=== PATIENT | male | born 1965 | race Caucasian/White ===

== ENCOUNTER 2018-12-07 23:35 | Emergency (ER) | payer OTHER, SELFPAY ==
[2018-12-07 23:36] VITALS: BP 172/80; PULSE 99; RESP 16; TEMP 36.7; O2SAT 97; BMI 33.0
--- NOTE | 2018-12-07 23:41 | RAD_ITS ---
STUDY: X-RAY CHEST REASON FOR EXAM: Male, 53 years old. Chest pain TECHNIQUE: Single AP portable view of the chest. COMPARISON: None. FINDINGS: There is ill-defined rounded groundglass opacity in the right upper lobe measures 3 cm may represent early pneumonia. There is no demonstrated pleural abnormality. Normal size heart. Normal mediastinum and cliff. Normal visualized pulmonary arteries. Normal visualized aortic arch and descending thoracic aorta. Normal visualized thoracic spine. Normal visualized ribs, clavicles, and shoulders. There is no demonstrated abnormality of the visualized soft tissue structures of the upper abdomen. RAD/Chest PA and Lateral IMPRESSION: There is ill-defined rounded groundglass opacity in the right upper lobe measures 3 cm may represent early pneumonia. Electronically Signed: Cami Gonsalves MD at 1:10 EST Tel , Service support ,
--- NOTE | 2018-12-07 23:41 | EKG12_ITS ---
Test Reason : CP Blood Pressure : / mmHG Vent. Rate : 094 BPM Atrial Rate : 094 BPM P-R Int : 156 ms QRS Dur : 092 ms QT Int : 358 ms P-R-T Axes : 029 021 065 degrees QTc Int : 447 ms Normal sinus rhythm Normal ECG Confirmed by NICHOLAS IZAGUIRRE MD ([id number]), editorial project manager RALEIGH TURNER ([id number]) on 12/11/2018 1:34:52 PM Referred By: LUCIA Confirmed By:NIHCOLAS IZAGUIRRE MD
--- NOTE | 2018-12-07 23:52 | ED.VISSUMM ---
- ER Visit Summary Date of Service: 12/07/18 Chief Complaint: Right-sided chest pain History of Present Illness: The patient is a 53 M history of reflux and hypertension. No prior cardiac history. Patient states he had extensive workup in the end of 2013 because he donated a kidney to a family member had a negative stress test at that time. He denies any recent exertional chest pain. He works in [employer] says he is fallen several times on the ice of the last couple weeks. Tonight he was at home and he woke up from sleep with right-sided chest pain at approximately 11:00 p.m. Said the pains been constant but it is less than now. Is worse with movement and deep breathing. He denies any history of hemoptysis. He denies any history of DVT or PE. No recent travel, surgery or immobilization. No calf pain or swelling. Denies fever or cough. No history of a collapsed lung. He does smoke. Family history of cardiac disease or coagulopathy. No recent exertional dyspnea or exertional chest pain. Physical Examination: Well-appearing middle-age male. Vital signs are stable. He is afebrile. His pulse ox 97% on room air no hypoxia. No distress. HEENT exam unremarkable. Neck nontender no lymphadenopathy. Lungs clear to auscultation bilaterally. Equal and symmetrical. No rales, rhonchi or wheezing. Chest wall is nontender. No ecchymosis or bruising. No bony deformities. No subcu air. Heart is regular rate and rhythm with no murmur. Abdomen is soft and nontender normal bowel sounds without peritoneal signs. Extremities moves all 4. Equal symmetrical radial pulses. Normal senior oracle developer strength bilaterally. Dorsi plantar flexion intact. Calves are nontender without edema nor cords. Back is nontender. Neurologically he is awake and alert with no focal motor deficits. Test Results: EKG shows a normal sinus rhythm rate of 94 with absolutely no acute abnormality. No ischemia. No dysrhythmia. And unchanged from her prior EKG from December 2014. Chest x-ray two-view shows a right upper lobe density on the lateral asked that was not seen on prior chest x-rays. A CAT scan will be obtained to further evaluate this. Clinically does not have PE but it was sudden onset Sunday on a CTA of his chest with contrast. CBC shows a chronic anemia hemoglobin of 12. Electrolytes unremarkable. Normal creatinine. Troponin normal. A repeat EKG was also done it was a sinus rhythm of 88 with no acute abnormality from the first EKG done tonight and a prior 1. Do you have the right upper lobe density a CTA was obtained. There is no PE or dissection. He does have what appears to be a groundglass appearance right upper lobe pneumonia per the radiologist and reviewed by me. Emergency Department Course and Treatment: Patient will undergo cardiac workup my clinical suspicion for this being cardiac is low. He has no risk factors for PE. No recent travel, surgery or immobilization. No hemoptysis or leg pain or swelling. Patient doing well on repeat exams. He is resting comfortably at 1:20 AM. I went over the chest x-ray with him and is comfortable with the CAT scan being obtained. Patient doing well at 02 45 AM on repeat exam. Treatment Plan: Treated with Motrin and Tylenol for pain. Plenty of fluids and rest. Zithromax Z-AGNES first dose given in the ER. Follow-up with his PCP Disposition: Discharge Impression: Acute right-sided chest pain secondary to right upper lobe pneumonia This note was generated with [employer] dictation software. It may contain incorrect words, spelling, and punctuation that were not noted in review of the chart prior to signing ED Disposition - Plan for ED Patient: Referrals: Gerald Oconnor DO [Primary Care Provider] -
--- NOTE | 2018-12-07 23:55 | ED.DCSUM_ITS ---
- ER Visit Summary Date of Service: 12/07/18 Chief Complaint: Right-sided chest pain History of Present Illness: The patient is a 53 M history of reflux and hypertension. No prior cardiac history. Patient states he had extensive workup in the end of 2013 because he donated a kidney to a family member had a negative stress test at that time. He denies any recent exertional chest pain. 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 Tonight he was at home and he woke up from sleep with right-sided chest pain at approximately 11:00 p.m. Said the pains been constant but it is less than now. Is worse with movement and deep breathing. He denies any history of hemoptysis. He denies any history of DVT or PE. No recent travel, surgery or immobilization. No calf pain or swelling. Denies fever or cough. No history of a collapsed lung. He does smoke. Family history of cardiac disease or coagulopathy. No recent exertional dyspnea or exertional chest pain. Physical Examination: Well-appearing middle-age male. Vital signs are stable. He is afebrile. His pulse ox 97% on room air no hypoxia. No distress. HEENT exam unremarkable. Neck nontender no lymphadenopathy. Lungs clear to auscultation bilaterally. Equal and symmetrical. No rales, rhonchi or wheezing. Chest wall is nontender. No ecchymosis or bruising. No bony deformities. No subcu air. Heart is regular rate and rhythm with no murmur. Abdomen is soft and nontender normal bowel sounds without peritoneal signs. Extremities moves all 4. Equal symmetrical radial pulses. Normal brass buffer strength bilaterally. Dorsi plantar flexion intact. Calves are nontender without edema nor cords. Back is nontender. Neurologically he is awake and alert with no focal motor deficits. Test Results: EKG shows a normal sinus rhythm rate of 94 with absolutely no acute abnormality. No ischemia. No dysrhythmia. And unchanged from her prior EKG from December 2014. Chest x-ray two-view shows a right upper lobe density on the lateral asked that was not seen on prior chest x-rays. A CAT scan will be obtained to further evaluate this. Clinically does not have PE but it was sudden onset Sunday on a CTA of his chest with contrast. CBC shows a chronic anemia hemoglobin of 12. Electrolytes unremarkable. Normal creatinine. Troponin normal. A repeat EKG was also done it was a sinus rhythm of 88 with no acute abnormality from the first EKG done tonight and a prior 1. Do you have the right upper lobe density a CTA was obtained. There is no PE or dissection. He does have what appears to be a groundglass appearance right upper lobe pneumonia per the radiologist and reviewed by me. Emergency Department Course and Treatment: Patient will undergo cardiac workup my clinical suspicion for this being cardiac is low. He has no risk factors for PE. No recent travel, surgery or immobilization. No hemoptysis or leg pain or swelling. Patient doing well on repeat exams. He is resting comfortably at 1:20 AM. I went over the chest x-ray with him and is comfortable with the CAT scan being obtained. Patient doing well at 02 45 AM on repeat exam. Treatment Plan: Treated with Motrin and Tylenol for pain. Plenty of fluids and rest. Zithromax Z-AGNES first dose given in the ER. Follow-up with his PCP Disposition: Discharge Impression: Acute right-sided chest pain secondary to right upper lobe pneumonia This note was generated with [employer] dictation software. It may contain incorrect words, spelling, and punctuation that were not noted in review of the chart prior to signing ED Disposition - Plan for ED Patient: Referrals: Gerald Oconnor DO [Primary Care Provider] -
[2018-12-07 23:58] LABS: Absolute Lymphocyte Count 1.79 X10^3/ul (0.83-4.51); Absolute Neutrophil Count 7.1 X10^3/uL (2.0-7.7); Basophil# 0.01 X10^3/uL; Basophil% 0.1 % (0-1); Eosinophil# 0.04 X10^3/uL; Eosinophils% 0.4 % (0-5); Hematocrit 34.8 % (40-54); Hemoglobin 12.1 g/dl (13.0-16.5); Lymphocyte # 1.79 X10^3/ul (4.0); Lymphocyte % 17.9 % (19-41); Mean Corp Hgb Conc 34.8 g/gl (32-36); Mean Corpuscular Hgb 33.8 pg (27.0-32.0); Mean Corpuscular Volume 97.2 fL (80-94); Mean Platelet Vol. 8.2 fl (6.2-12.0); Monocyte# 1.05 X10^3/uL; Monocyte% 10.5 % (0-10); Neutrophil % 70.9 % (47-70); Platelet Count 210 K/mm3 (150-450); RBC Distribution Width SD 40.6 fl (35.1-43.9); Red Blood Count 3.58 M/mm3 (4.6-6.2)
[2018-12-08 00:01] LABS: POSITIVE COUNT NO; POSITIVE DIFFERENTIAL NO; POSITIVE MORPHOLOGY NO
[2018-12-08] MEDS: Aspirin 81 MG TAB.CHEW 324 MG PO (00:04)
[2018-12-08 00:22] LABS: Anion Gap 11 (5-15); BUN 17 mg/dL (7-18); BUN/Creat Ratio 16.7 RATIO (10-20); Calcium,Total 9.4 mg/dL (8.5-10.1); Chloride 105 mmol/L (98-107); Creatinine, Serum 1.02 mg/dL (0.70-1.30); EST Glomerular Filtration Rate 81 mL/min (>60); Est Glom Filt Rate - Afr Amer 99 mL/min (>60); Estimated Creatinine Clearance 95.74 ml/min; Glucose 120 mg/dL (74-106); Potassium 3.6 mmol/L (3.5-5.1); Sodium Level 140 mmol/L (136-145)
--- NOTE | 2018-12-08 00:45 | EKG12_ITS ---
Test Reason : REPEAT CP Blood Pressure : / mmHG Vent. Rate : 088 BPM Atrial Rate : 088 BPM P-R Int : 176 ms QRS Dur : 092 ms QT Int : 354 ms P-R-T Axes : 038 019 068 degrees QTc Int : 428 ms Normal sinus rhythm Cannot rule out Inferior infarct , age undetermined Abnormal ECG Confirmed by DMITRIY DOMINGO, NICHOLAS ([id number]), editor publications RALEIGH TURNER ([id number]) on 12/11/2018 1:34:36 PM Referred By: LUCIA Confirmed By:NICHOLAS IZAGUIRRE MD
[2018-12-08 00:51] VITALS: PULSE 90; RESP 16; O2SAT 92
[2018-12-08 01:10] VITALS: BP 146/76; PULSE 91; RESP 18; O2SAT 94
--- NOTE | 2018-12-08 01:15 | CT_ITS ---
STUDY: CTA CHEST REASON FOR EXAM: Male, 53 years old. Right-sided chest pain RADIATION DOSAGE (If Supplied By Facility): CTDIvol = ( 16.47 ) mGy, DLP = ( 769.39 ) mGycm TECHNIQUE: The examination was performed with the intravenous administration of 100ml ml of Isovue 370 contrast material. Post-processing of the angiographic images was performed, with multiplanar reformation and 3D reconstruction. Individualized dose optimization techniques were used for this CT. COMPARISON: None. FINDINGS: TRACHEA, THYROID, ESOPHAGUS: No tracheomalacia,stricture or wall thickening. Thyroid and esophagus are normal CARDIOVASCULAR SYSTEM: The thoracic aorta is normal with no focal aneurysm or dissection. There are no abnormal calcifications/metallic densities at the aortic root. The pulmonary trunk and the left and right pulmonary arteries and their lobar and segmental branches all fail to show any abnormal and persistent filling defects to indicate the presence of pulmonary embolism. The heart is normal in size with no demonstration of any right ventricular strain. No developmental vascular anomalies are seen. ABIEL AND LYMPH NODES: No hilar masses and no mediastinal, hilar, axillary or supraclavicular adenopathy LUNGS, LOW-ATTENUATION: No traction bronchiectasis, honeycombing,emphysema, lung cysts or cavitations LUNGS, HIGH ATTENUATION: There is a 5.5 x 4.0 cm tuft of groundglass opacity in the peripheral aspect of the right upper lobe. A focus of pneumonia is suspected. LUNGS, MOSAIC/CRAZY PAVING: Not evident PLEURA AND CHEST WALL: No plural effusions, pneumothoraces,rib fractures or any osteolytic/osteoblastic changes . The soft tissue chest wall including the breasts are normal UPPER ABDOMEN: Unremarkable . CT/CTA Chest W/WO Contrast IMPRESSION: Normal CTA chest examination, without a demonstrated pulmonary embolism or arterial dissection.. Focal area of a groundglass opacity in the periphery of the right upper lobe. Pneumonia is suspected Electronically Signed: Julian Gibson MD at 2:27 EST Tel , Service support ,
--- NOTE | 2018-12-08 01:50 | ED.RN ---
PT REMOVED FROM RESTRAINTS AT 0145. PT RESTING IN BED WITH EYES CLOSED. SITTER AT BEDSIDE.
[2018-12-08 02:43] VITALS: BP 152/74; PULSE 89; RESP 19; O2SAT 94
--- NOTE | 2018-12-08 02:46 | ED.DEP ---
ED Disposition - Plan for ED Patient: Disposition: Home or Assisted Living Instructions: ED Pneumonia Adult, Pleurisy Prescriptions: Azithromycin [Zithromax] 250 mg PO DAILY #4 tab Referrals: Gerald Oconnor DO [Primary Care Provider] - 1 Week if not improving Additional Instructions: What appears on your chest x-ray and CAT scan your chest seems to be a right upper lobe pneumonia. This could be given you the pain in your right chest due to inflammation of the lining around the lung. He will be started on the antibiotic Zithromax. Annual need to take her second dose on Sunday. Limited Motrin for pain. Follow-up with your doctor to ensure you are improving. Return if worse.
[2018-12-08] MEDS: Azithromycin 250 MG Tablet 500 MG PO (02:57)
[2018-12-08 03:02] VITALS: BP 146/84; PULSE 89; RESP 16; O2SAT 97
== END 2018-12-08 03:03 | disposition home or self-care (01) ==
PROVIDERS: Emergency Provider Emergency Medicine; Family Provider Student in an Organized Health Care Education/Training Program; PCP Student in an Organized Health Care Education/Training Program
DX: J18.9 Pneumonia, unspecified organism (principal); R07.9 Chest pain, unspecified; Z72.0 Tobacco use
CPT/HCPCS: 71046; 71275; 80048; 84484; 85025; 93005; 99285; Q9967

== ENCOUNTER 2018-12-10 08:51 | Inpatient (IN) | payer OTHER, SELFPAY ==
[2018-12-10] VITALS (9 sets, daily range): BP systolic 119–157; BP diastolic 66–101; PULSE 90–105; RESP 11–24; TEMP 36.6–39.4; O2SAT 93–99; BMI 33.9; BMI 33.1
--- NOTE | 2018-12-10 09:09 | RAD_ITS ---
STUDY: X-RAY CHEST REASON FOR EXAM: Male, 53 years old. Chest pain and shortness of breath. TECHNIQUE: PA and lateral views of the chest. COMPARISON: Comparison is made with prior chest radiograph dated December 07, 2018. FINDINGS: EKG electrodes are seen. Since prior study, there has been progressive infiltrate in the lateral aspect of the right upper lobe suggestive of pneumonia. Follow-up is recommended. There is no demonstrated pleural abnormality. Normal size heart. Normal mediastinum and cliff. Normal visualized pulmonary arteries. Normal visualized aortic arch and descending thoracic aorta. There are degenerative changes of the visualized thoracic spine. Normal visualized ribs, clavicles, and shoulders. There is no demonstrated abnormality of the visualized soft tissue structures of the upper abdomen. RAD/Chest PA and Lateral IMPRESSION: Progressive infiltrate in the lateral aspect of the right upper lobe. Follow-up is recommended. Electronically Signed: Pedrito Rehman MD at 11:17 EST , Service support ,
--- NOTE | 2018-12-10 09:13 | EKG12_ITS ---
Test Reason : CHEST PAIN Blood Pressure : / mmHG Vent. Rate : 086 BPM Atrial Rate : 086 BPM P-R Int : 152 ms QRS Dur : 090 ms QT Int : 362 ms P-R-T Axes : 040 032 063 degrees QTc Int : 433 ms Normal sinus rhythm Normal ECG Confirmed by DMITRIY DOMINGO, NICHOLAS ([id number]), supervising film or videotape editor RALEIGH TURNER ([id number]) on 12/16/2018 10:21:39 AM Referred By: [place] [facility] Confirmed By:NICHOLAS IZAGUIRRE MD
[2018-12-10 09:41] LABS: Absolute Lymphocyte Count 0.89 X10^3/ul (0.83-4.51); Absolute Neutrophil Count 7.8 X10^3/uL (2.0-7.7); Basophil# 0.02 X10^3/uL; Basophil% 0.2 % (0-1); Hematocrit 36.4 % (40-54); Hemoglobin 12.3 g/dl (13.0-16.5); Lymphocyte # 0.89 X10^3/ul (4.0); Lymphocyte % 9.3 % (19-41); Mean Corp Hgb Conc 33.8 g/gl (32-36); Mean Corpuscular Hgb 32.4 pg (27.0-32.0); Mean Corpuscular Volume 95.8 fL (80-94); Mean Platelet Vol. 8.4 fl (6.2-12.0); Monocyte# 0.78 X10^3/uL; Monocyte% 8.2 % (0-10); Neutrophil # 7.83 X10^3/uL (2.7-7.7); Neutrophil % 82.2 % (47-70); POSITIVE COUNT NO; POSITIVE DIFFERENTIAL NO; POSITIVE MORPHOLOGY NO; Platelet Count 160 K/mm3 (150-450); RBC Distribution Width CV 12.1 % (11.6-14.6); RBC Distribution Width SD 41.9 fl (35.1-43.9); White Blood Count 9.5 K/mm3 (4.4-11.0)
[2018-12-10 09:53] LABS: Anion Gap 9 (5-15); BUN 16 mg/dL (7-18); BUN/Creat Ratio 10.2 RATIO (10-20); Calcium,Total 9.6 mg/dL (8.5-10.1); Chloride 97 mmol/L (98-107); Creatinine, Serum 1.57 mg/dL (0.70-1.30); EST Glomerular Filtration Rate 50 mL/min (>60); Est Glom Filt Rate - Afr Amer 60 mL/min (>60); Estimated Creatinine Clearance 60.41 ml/min; Glucose 101 mg/dL (74-106); Potassium 3.6 mmol/L (3.5-5.1); Sodium Level 131 mmol/L (136-145)
[2018-12-10 10:02] LABS: Lactic Acid 0.9 mmol/L (0.4-2.0)
[2018-12-10] MEDS: 0.9% Normal Saline 1,000 ML 1000 ML IV (10:05)
[2018-12-10] MEDS: Ketorolac 15 MG/ML Vial IV (10:05)
--- NOTE | 2018-12-10 12:01 | ED.DCSUM_ITS ---
- ER Visit Summary Date of Service: 12/10/18 Chief Complaint: [Fever and cough] History of Present Illness: The patient is a 53 M [presents the emergency department complaint of fever and cough that started 4 days ago. Patient apparently had presented to the emergency department with right-sided chest pain and was evaluated with a chest x-ray and CTA of the chest which showed a right upper lobe infiltrate suspicious for pneumonia. Patient was started on Zithromax and discharged home. Patient states he has not eaten in 4 days and continues to have chills and sweats as well as fever up to 1037. Patient states that his chest pains improved but is complaining of severe headache and pain behind his eyeballs.] Physical Examination: [HEENT-PERRLA, EOMI. Cranial nerves II through XII grossly intact. TMs clear. Mucous membranes moist. No adenopathy. Cardiovascular-regular rate and rhythm without murmur or ectopy Lungs-few rhonchi and faint rales noted right upper lobe. No accessory muscles or retractions. No crepitus or subcutaneous emphysema. Abdomen-normoactive bowel sounds, soft, nontender, no rebound or rigidity, no peritoneal signs. Extremities-intact ?4, normal range of motion, normal pulses, atraumatic] Test Results: [Blood cultures were sent. CBC with differential count 9.5, hemoglobin 12, hematocrit 36, platelets 160. Chemistries unremarkable. BUN was 16 and creatinine 1.57. Chest x-ray 2 views obtained showed worsening right upper lobe infiltrate] Emergency Department Course and Treatment: [Patient was started on Rocephin and Zithromax] Treatment Plan: [Admit] Disposition: [Admit] Impression: [Pneumonia-failed outpatient therapy] This note was generated with [employer] dictation software. It may contain incorrect words, spelling, and punctuation that were not noted in review of the chart prior to signing ED Disposition - Plan for ED Patient: Referrals: Gerald Oconnor DO [Primary Care Provider] -
--- NOTE | 2018-12-10 12:25 | NURSING ---
SECOND PAGE TO HOSPITALIST PER DR. BARROS.
--- NOTE | 2018-12-10 13:26 | NURSING ---
MED SURG CAP, WEAKNESS OBS PROSPER
--- NOTE | 2018-12-10 13:48 | HP.PCM_ITS ---
Problem List (1) Single kidney Status: Chronic (2) Community acquired pneumonia Status: Acute (3) HTN (hypertension) Status: Chronic (4) GERD (gastroesophageal reflux disease) Status: Chronic History of Present Illness Date of Admission: 12/10/18 Chief Complaint: Fevers, chills, shortness of breath The patient is a 53 year old M with a PMH as below who presents 3 days after initially coming to the ER for chest pain and shortness of breath. At that time he had a chest x-ray which showed an ill-defined groundglass opacity in the right lung and he was discharged on azithromycin. He had a workup for both cardiac chest pain and possible PE with a CTA chest which was negative, and his troponins were unremarkable. He presents back to the hospital today because despite the antibiotic he continued to get worse and spiked a fever yesterday evening and this morning had significant chills and shaking. A repeat chest x- ray here in the ER demonstrated a worsening of the right upper lobe consolidation. He only had 1 out of 4 SIRS criteria with a heart rate of 98, otherwise his respiratory rate was only 20 and he has no leukocytosis or leukopenia. Also in the ER his lactate was drawn and it was 0.9. Will admit for failed outpatient treatment of community-acquired pneumonia. Past Medical History Past Medical History (Chronic Problems): Chronic Problems Single kidney (Chronic) HTN (hypertension) (Chronic) GERD (gastroesophageal reflux disease) (Chronic) Allergies No Known Allergies Allergy (Verified 12/10/18 08:54) Home Medications: Ambulatory Orders Medication Instructions Recorded Omeprazole [Prilosec] 40 mg PO DAILY 12/28/14 Lisinopril/Hydrochlorothiazide 1 tablet PO DAILY 04/19/17 [Zestoretic 08/16.5 Tablet] Azithromycin [Zithromax] 250 mg PO DAILY #4 tab 12/08/18 Cholecalciferol (Vitamin D3) 2,000 unit PO DAILY 12/10/18 [Vitamin D3] Echinacea 1 tab PO DAILY 12/10/18 Surgical History: - - Nephrectomy as a donor Smoking Status: Current every day smoker Tobacco Use: Cigarettes Alcohol: Occasional Drugs: None - *Family History Maternal History Items: Heart Disease Paternal History Items: Cancer Review of Systems Constitutional: Reports: Anorexia, Chills, Fever, Fatigue HEENT: Denies: Head Aches, Sinus Congestion, Sinus Drainage Cardiovascular: Denies: Chest Pain, Palpitations Respiratory: Reports: Cough, Shortness of Breath. Denies: Shortness of breath at rest, Sputum production Gastrointestinal: Denies: Abdominal Pain, Nausea, Vomiting Genitourinary: Denies: Dysuria Musculoskeletal: Denies: Joint Pain, Joint Tenderness Skin: Denies: Rash, Wounds Neurological: Denies: Numbness, Tingling, Focal weakness Psychiatric: Denies: Anxiety, Depression Hematologic/ Lymphatic: Denies: Easy Bruising, Easy Bleeding VTE Information - Inpt Only VTE Present on Admission: No Patient Problems: Active and Suspected Problems Community acquired pneumonia (Acute) - Physical Exam General: Alert, Oriented x3, Cooperative, - - Reiger's HEENT: Atraumatic, PERRLA, EOMI, Normocephalic Oral: Dry Mucosa Neck: Supple, No JVD, Trachea Midline Lungs: Clear to auscultation, Normal air movement, No rhonchi, No wheeze, No rales, Diminished Cardiovascular: Regular Rhythm, Normal S1, Normal S2, No murmurs, Tachycardic Abdomen: Soft, Non Tender, Non-Distended, No Hepato-splenomegaly Skin: No rashes, No breakdown Neurological: Neuro grossly intact, Sensory exam intact to light touch and pain Psych/Mental Status: Normal Affect, Appropriate Vital Signs Temp Pulse Resp BP Pulse Ox 98 F 105 H 14 132/101 H 96 12/10/18 08:52 12/10/18 13:25 12/10/18 13:25 12/10/18 13:25 12/10/18 13:25 Oxygen Delivery Method Room Air Weight: 250 lb Body Mass Index (BMI) 33.9 Laboratory Tests Past 24 Hrs 12/10/18 12/10/18 12/10/18 09:30 09:30 09:30 WBC 9.5 RBC 3.80 L Hgb 12.3 L Hct 36.4 L MCV 95.8 H MCH 32.4 H MCHC 33.8 RDW 12.1 RDW Differential 41.9 Plt Count 160 MPV 8.4 Immature Gran % (Auto) 0.100 Neut % (Auto) 82.2 H Lymph % (Auto) 9.3 L [place] % (Auto) 8.2 Eos % (Auto) 0.0 Baso % (Auto) 0.2 Absolute Neuts (auto) 7.8 H Absolute Lymphs (auto) 0.89 Total Counted Not Reportable Sodium 131 L Potassium 3.6 Chloride 97 L Carbon Dioxide 25.0 Anion Gap 9 BUN 16 Creatinine 1.57 H Estim Creat Clear Calc 60.41 Est GFR (MDRD) Af Amer 60 Est GFR (MDRD) Non-Af 50 L BUN/Creatinine Ratio 10.2 Glucose 101 Lactic Acid 0.9 Calcium 9.6 Assessment/Plan All Active Problems Community acquired pneumonia (Acute) 1. Failed outpatient management of community-acquired pneumonia/AK I -Not septic -Continue with IV fluids, will hold any nephrotoxic agents given his single kidney -Continue with IV hydration considering his creatinine is 1.57 up from a baseline of 0.8 -He did receive 3 days of azithromycin, and he did get a dose of azithromycin here as well as a dose of IV Rocephin in the ER -Transition to IV Levaquin 2. HTN -We will hold his lisinopril and HCTZ until discharge depending on improvement in his renal function -Stable 3. GERD -Stable -Continue with PPI DVT: Ambulate Code Visit Inpatient E&M: 16102 Init Hosp L3
[2018-12-10] MEDS: Ceftriaxone 1 GM/50 ML BAG IV (13:57)
[2018-12-10] MEDS: 0.9% Normal Saline 1,000 ML 150 ML IV ×2 (13:58→16:16)
[2018-12-10] MEDS: Acetaminophen 500 MG Tablet 1000 MG PO (14:08)
--- NOTE | 2018-12-10 14:28 | ED.RN ---
pt had delayed administration of antibiotics related to pharmacy not receiving their print off after order. pharmacy called and medication obtained and given short after receiving medication. kinza vallecillo rn [id number]
[2018-12-10] MEDS: levoFLOXacin IV 750 MG/150 ML BAG 100 MG IV (16:14)
[2018-12-10] MEDS: Acetaminophen 325 MG Tablet 650 MG PO (19:23)
[2018-12-11] VITALS (8 sets, daily range): BP systolic 123–143; BP diastolic 57–85; PULSE 79–95; RESP 14–18; TEMP 36.6–38.2; O2SAT 95–99
[2018-12-11] MEDS: 0.9% Normal Saline 1,000 ML 150 ML IV ×4 (00:31→21:00)
[2018-12-11] MEDS: Acetaminophen 325 MG Tablet 650 MG PO ×3 (02:00→14:36)
[2018-12-11 05:51] LABS: Absolute Lymphocyte Count 0.75 X10^3/ul (0.83-4.51); Absolute Neutrophil Count 3.8 X10^3/uL (2.0-7.7); Basophil# 0.01 X10^3/uL; Basophil% 0.2 % (0-1); Hematocrit 32.6 % (40-54); Hemoglobin 10.8 g/dl (13.0-16.5); Lymphocyte # 0.75 X10^3/ul (4.0); Lymphocyte % 14.7 % (19-41); Mean Corp Hgb Conc 33.1 g/gl (32-36); Mean Corpuscular Hgb 32.2 pg (27.0-32.0); Mean Corpuscular Volume 97.3 fL (80-94); Mean Platelet Vol. 8.5 fl (6.2-12.0); Monocyte# 0.54 X10^3/uL; Monocyte% 10.6 % (0-10); Neutrophil # 3.78 X10^3/uL (2.7-7.7); Neutrophil % 74.3 % (47-70); Platelet Count 176 K/mm3 (150-450); RBC Distribution Width CV 11.5 % (11.6-14.6); RBC Distribution Width SD 39.8 fl (35.1-43.9); Red Blood Count 3.35 M/mm3 (4.6-6.2); White Blood Count 5.1 K/mm3 (4.4-11.0)
[2018-12-11 05:58] LABS: POSITIVE COUNT NO; POSITIVE DIFFERENTIAL NO; POSITIVE MORPHOLOGY NO
[2018-12-11 06:08] LABS: Anion Gap 9 (5-15); BUN 16 mg/dL (7-18); BUN/Creat Ratio 12.7 RATIO (10-20); Calcium,Total 8.9 mg/dL (8.5-10.1); Chloride 106 mmol/L (98-107); Creatinine, Serum 1.26 mg/dL (0.70-1.30); EST Glomerular Filtration Rate 64 mL/min (>60); Est Glom Filt Rate - Afr Amer 77 mL/min (>60); Estimated Creatinine Clearance 75.27 ml/min; Glucose 99 mg/dL (74-106); Sodium Level 139 mmol/L (136-145)
[2018-12-11] MEDS: levoFLOXacin IV 750 MG/150 ML BAG 100 MG IV (10:01)
--- NOTE | 2018-12-11 12:57 | NURSING ---
student nurse documentation reviewed for documentations learning purposes.
--- NOTE | 2018-12-11 13:01 | PN_ITS ---
Patient Problems: Active and Suspected Problems Community acquired pneumonia (Acute) Subjective: Feeling better today after 2 L of fluid yesterday. States that he still does not feel 100% back to baseline and is unsure if you would like to go home today or not. Vitals/I&O's: Vital Signs Temp Pulse Resp BP Pulse Ox 98.2 F 84 16 128/69 H 95 12/11/18 11:55 12/11/18 11:55 12/11/18 11:55 12/11/18 11:55 12/11/18 11:55 Oxygen Flow Rate (L/min) 3 Oxygen Delivery Method Room Air Weight: 244 lb 4.355 oz Body Mass Index (BMI) 33.1 Intake and Output for Last 24 Hours 12/09/18 12/10/18 12/11/18 23:59 23:59 23:59 Intake Total 1578 / 1578 2871 / 2871 Output Total 200 / 200 2550 / 2550 Balance 1378 / 1378 321 / 321 General: Alert, Oriented x3, Cooperative, HEENT: Atraumatic, PERRLA, EOMI, Normocephalic Oral: Dry Mucosa Neck: Supple, No JVD, Trachea Midline Lungs: Clear to auscultation, Normal air movement, No rhonchi, No wheeze, No rales, Diminished Cardiovascular: Regular Rhythm, Normal S1, Normal S2, No murmurs, Tachycardic Abdomen: Soft, Non Tender, Non-Distended, No Hepato-splenomegaly Skin: No rashes, No breakdown Neurological: Neuro grossly intact, Sensory exam intact to light touch and pain Psych/Mental Status: Normal Affect, Appropriate Microbiology Past 72 Hours 12/10/18 10:50 Mucosa - Throat Respiratory Panel (PCR) - Final Laboratory Results 12/11/18 05:20: WBC 5.1, RBC 3.35 L, Hgb 10.8 L, Hct 32.6 L, MCV 97.3 H, MCH 32.2 H, MCHC 33.1, RDW 11.5 L, RDW Differential 39.8, Plt Count 176, MPV 8.5, Immature Gran % (Auto) 0.200, Neut % (Auto) 74.3 H, Lymph % (Auto) 14.7 L, [place] % (Auto) 10.6 H, Eos % (Auto) 0.0, Baso % (Auto) 0.2, Absolute Neuts (auto) 3.8, Absolute Lymphs (auto) 0.75 L, Total Counted Not Reportable 12/11/18 05:20: Sodium 139, Potassium 4.0, Chloride 106, Carbon Dioxide 24.0, Anion Gap 9, BUN 16, Creatinine 1.26, Estim Creat Clear Calc 75.27, Est GFR (MDRD) Af Amer 77, Est GFR (MDRD) Non-Af 64, BUN/Creatinine Ratio 12.7, Glucose 99, Calcium 8.9 Current Medications Acetaminophen (Tylenol) 650 mg PO Q6H PRN PRN PRN Reason: fever, or pain Last Admin: 12/11/18 08:09 Dose: 650 mg Sodium Chloride () 1,000 mls @ 150 mls/hr IV .Q6H40M [facility] Last Admin: 12/11/18 07:18 Dose: 150 mls/hr Levofloxacin (Levaquin Iv) 750 mg in 150 mls @ 100 mls/hr IV Q24 [facility] Last Admin: 12/11/18 10:01 Dose: 100 mls/hr Magnesium Hydroxide (Milk Of Magnesia) 30 ml PO DAILY PRN PRN PRN Reason: Constipation Nutritional Formula (Lactose Free) (Ensure Enlive) 120 ml PO 4X/DAY [facility] Last Admin: 12/11/18 10:03 Dose: 120 ml Sodium Chloride () 5 - 15 ml IV UD PRN PRN Reason: SALINE FLUSH Medical Necessity - Tobacco Use Smoking Status: Current every day smoker Tobacco Use: Cigarettes Assessment/Plan All Active Problems Community acquired pneumonia (Acute) 1. Failed outpatient management of community-acquired pneumonia/AK I -Not septic, and creatinine has improved from 1.57 down to 1.26. -Continue with IV fluids, will hold any nephrotoxic agents given his single kidney -Continue with IV hydration considering his creatinine is 1.57 up from a baseline of 0.8 -He did receive 3 days of azithromycin, and he did get a dose of azithromycin here as well as a dose of IV Rocephin in the ER -Transition to IV Levaquin 2. HTN -We will hold his lisinopril and HCTZ until discharge depending on improvement in his renal function -Stable 3. GERD -Stable -Continue with PPI DVT: Ambulate Code Visit Inpatient E&M: 45861 Subs Hosp L2
--- NOTE | 2018-12-11 13:07 | NURSING ---
student nurses charting reviewed for documentation learning purposes.
--- NOTE | 2018-12-11 13:50 | CASEMGMT ---
RN SHEREEN SECURITY INTERN CM to room to meet with patient for initial transition planning/care coordination assessment. RN SHEREEN introduced self and role at [facility].? Pt voices understanding and consents to assessment at this time.? Pt resting in bed in no distress at this time.? Pt is A/O at this time and answers all questions appropriately.?? Care providers, pharmacy, and demographics verified/updated at this time. PCP: Elvin Specialists: Denies Preferred Pharmacy: [facility] Retail on discharge day only, Kenia Drake Insurance: [employer] Prescription Benefit:? Yes Living Will/HPOA:? States does not have LW or HCPOA .? Interested in more information but states does not want to talk with SW at this time to complete paperwork.? Provided information on advanced directives and given Social Service rac card with number to call if chooses in the future to utilize [facility] social work for advanced directive completion. Educated patient that, if patient so chooses, can come back to [facility] and meet with a SW as an outpatient to complete health care advanced directives. Patient voices understanding. LNOK: Son lives in [place]. Sister, Muriel, who lives in [place] with his mother. Sister, Ninfa, in [place] Living Arrangements: Lives alone. Independent. Transportation: Pt states drives self and states no transportation concerns at this time.? DME: ? Denies using any DME and denies needs.? HHC/SNF: Has never been to a SNF or used HHC. Denies needs. Pt wishes to return home and states has no concerns with going home at time of discharge.? CM to follow for any further discharge planning/needs.? Pt voices no further concerns/needs at this time.? Advised pt to ask for CM if any further questions/concerns/needs arise.? Voices understanding. PLAN: ?Home Ava LUCERO RN, CM
[2018-12-11] MEDS: 0.9% NaCl Peripheral Flush Adult/Peds IV (17:38)
[2018-12-11] MEDS: MELATONIN 10 MG TABLET 5 MG PO (23:41)
[2018-12-12] MEDS: Acetaminophen 325 MG Tablet 650 MG PO (03:25)
[2018-12-12 03:30] VITALS: BP 142/87; PULSE 82; RESP 18; TEMP 37.1; O2SAT 96
[2018-12-12 05:13] VITALS: TEMP 36.9
[2018-12-12] MEDS: 0.9% Normal Saline 1,000 ML 150 ML IV (05:13)
[2018-12-12] MEDS: levoFLOXacin IV 750 MG/150 ML BAG 100 MG IV (07:25)
--- NOTE | 2018-12-12 07:41 | DCINST_ITS ---
- Discharge Diagnoses Current Active Problems: Current Active and Chronic Problems Single kidney (Chronic) Community acquired pneumonia (Acute) HTN (hypertension) (Chronic) GERD (gastroesophageal reflux disease) (Chronic) You will use the following diet at home:: Regular Your food should be the consistency of: Regular Your liquids should be the consistency of: Regular/Thin Discharge Activity: Return to Normal Activity Call your doctor if you observe: Fever of 101 or Higher, Shortness of breath, Dizziness, Fainting spells, Chest pain Allergies/Adverse Reactions: Allergies No Known Allergies Allergy (Verified 12/10/18 08:54) Medications to take at Discharge Omeprazole [Prilosec] 40 mg PO DAILY 12/28/14 Lisinopril/Hydrochlorothiazide [Zestoretic 10/.5 Tablet] 1 tablet PO DAILY 04/19/17 Cholecalciferol (Vitamin D3) [Vitamin D3] 2,000 unit PO DAILY 12/10/18 Echinacea 1 tab PO DAILY 12/10/18 levoFLOXacin tablet [Levaquin tablet] 750 mg PO DAILY #5 tablet 12/12/18 The following prescriptions were given: levoFLOXacin tablet [Levaquin tablet] 750 mg PO DAILY #5 tablet Primary Care Physician: Gerald Oconnor DO [Primary Care Provider] - Please follow up with your Primary Care Physician in: 3-5 days Test Results: Test results from this visit will be discussed in further detail at your follow- up appointment, if applicable.
--- NOTE | 2018-12-12 07:46 | DS.PCM_ITS ---
Discharge Date and Diagnosis - Problem List Patient Problems: Active and Suspected Problems Community acquired pneumonia (Acute) Date of Admission: 12/10/18 Date of Discharge: 12/12/18 - Primary Discharge Diagnosis Active and Suspected Problems Community acquired pneumonia (Acute) - Secondary Discharge Diagnosis Chronic Problems Single kidney (Chronic) HTN (hypertension) (Chronic) GERD (gastroesophageal reflux disease) (Chronic) Hospital Course and Treatment Imaging Results: CXR: IMPRESSION: Progressive infiltrate in the lateral aspect of the right upper lobe. Consults: None Operations: None Procedures: None Summary of Care Provided: Per HPI: The patient is a 53 year old M with a PMH as below who presents 3 days after initially coming to the ER for chest pain and shortness of breath. At that time he had a chest x-ray which showed an ill-defined groundglass opacity in the right lung and he was discharged on azithromycin. He had a workup for both cardiac chest pain and possible PE with a CTA chest which was negative, and his troponins were unremarkable. He presents back to the hospital today because despite the antibiotic he continued to get worse and spiked a fever yesterday evening and this morning had significant chills and shaking. A repeat chest x- ray here in the ER demonstrated a worsening of the right upper lobe consolidation. He only had 1 out of 4 SIRS criteria with a heart rate of 98, otherwise his respiratory rate was only 20 and he has no leukocytosis or leukopenia. Also in the ER his lactate was drawn and it was 0.9. Will admit for failed outpatient treatment of community-acquired pneumonia. Hospital Course: 1. Failed outpatient management of community-acquired pneumonia/AK I-he had presented on Sunday night with chest pain and had a chest x-ray at that time that showed a small groundglass opacity in the right upper lobe. He was discharged on azithromycin and unfortunately he did not improve despite taking the antibiotic appropriately. He had difficulties with hydration at home and nutrition and when he presented back to the ER it was found that his groundglass opacity had enlarged and his creatinine was up to 1.57 from a baseline of 0.8. He was given 2 L of fluid in the ER and transition to 150 cc an hour IV on the floor. His creatinine has improved to 1.27 on discharge and he states that he is feeling much better and says that he is almost able to go to work today if he wanted to. He will continue 5 more days of Levaquin as an outpatient. He has then afebrile for over 24 hours, and he will need to follow-up with his primary care physician in 3-5 days. Return to full duty on Sunday if he feels up to it. 2. His other medical diagnoses were evaluated and his home medications were to need where appropriate Patient Problems: Active and Suspected Problems Community acquired pneumonia (Acute) Objective: General: Alert, Oriented x3, Cooperative, HEENT: Atraumatic, PERRLA, EOMI, Normocephalic Oral: Dry Mucosa Neck: Supple, No JVD, Trachea Midline Lungs: Clear to auscultation, Normal air movement, No rhonchi, No wheeze, No rales, Diminished Cardiovascular: Regular Rhythm, Normal S1, Normal S2, No murmurs, Tachycardic Abdomen: Soft, Non Tender, Non-Distended, No Hepato-splenomegaly Skin: No rashes, No breakdown Neurological: Neuro grossly intact, Sensory exam intact to light touch and pain Psych/Mental Status: Normal Affect, Appropriate - Physical Exam Vital Signs Temp Pulse Resp BP Pulse Ox 98.5 F 82 18 142/87 H 96 12/12/18 05:13 12/12/18 03:30 12/12/18 03:30 12/12/18 03:30 12/12/18 03:30 Oxygen Flow Rate (L/min) 3 Oxygen Delivery Method Room Air Weight: 244 lb 4.355 oz Body Mass Index (BMI) 33.1 Intake and Output for Last 24 Hours 12/10/18 12/11/18 12/12/18 23:59 23:59 23:59 Intake Total 1578 / 1578 4085 / 4085 2455 / 2455 Output Total 200 / 200 3000 / 3000 1325 / 1325 Balance 1378 / 1378 1085 / 1085 1130 / 1130 Microbiology Past 72 Hours 12/10/18 10:50 Respiratory Panel (PCR) - Final Mucosa - Throat Discharge Activity: Return to Normal Activity Call your doctor if you observe: Fever of 101 or Higher, Shortness of breath, Dizziness, Fainting spells, Chest pain Home Medications: Medications to take at Discharge Omeprazole [Prilosec] 40 mg PO DAILY 12/28/14 Lisinopril/Hydrochlorothiazide [Zestoretic 10/12.5 Tablet] 1 tablet PO DAILY 04/19/17 Cholecalciferol (Vitamin D3) [Vitamin D3] 2,000 unit PO DAILY 12/10/18 Echinacea 1 tab PO DAILY 12/10/18 levoFLOXacin tablet [Levaquin tablet] 750 mg PO DAILY #5 tablet 12/12/18 Following Prescrptions Were Given to Patient: levoFLOXacin tablet [Levaquin tablet] 750 mg PO DAILY #5 tablet Primary Care Physician: Gerald Oconnor DO [Primary Care Provider] - Please follow up with your Primary Care Physician in: 3-5 days Disposition: Home Minutes spent on discharge:: 35 Patient Condition:: Good Medical Necessity - Tobacco Use Smoking Status: Current every day smoker Tobacco Use: Cigarettes Meaningful Use Info Meaningful Use Diagnoses (Choose all that apply): None applicable Code Visit Inpatient E&M: 11530 Disch Hosp
[2018-12-12 09:03] VITALS: BP 138/90; PULSE 80; RESP 16; TEMP 36.8; O2SAT 99
== END 2018-12-12 10:03 | disposition home or self-care (01) | DRG 194 ==
LOC: ED 09:52 → MS3 13:51
PROVIDERS: Admitting Provider Family Medicine; Emergency Provider Emergency Medicine; Family Provider Student in an Organized Health Care Education/Training Program; PCP Student in an Organized Health Care Education/Training Program; Referring Provider Family Medicine; Visit Provider Family Medicine
DX: J18.9 Pneumonia, unspecified organism (principal); N17.9 Acute kidney failure, unspecified; K21.9 Gastro-esophageal reflux disease without esophagitis; I10 Essential (primary) hypertension; F17.210 Nicotine dependence, cigarettes, uncomplicated; Z79.899 Other long term (current) drug therapy
CPT/HCPCS: 36415; 71046; 80048; 83605; 85025; 87040; 87633; 93005; 97802; 99282; J7030; A4216

== ENCOUNTER 2019-09-26 16:17 | Emergency (ER) | payer OTHER, SELFPAY ==
[2018-12-10 14:43] VITALS: BMI 33.1
[2019-09-26 16:17] VITALS: BP 151/83; PULSE 92; RESP 14; TEMP 37; O2SAT 99; BMI 31.6
--- NOTE | 2019-09-26 16:31 | ED.DEP ---
ED Disposition - Plan for ED Patient: Instructions: LACERATION, Hand Referrals: Gerald Oconnor DO [Primary Care Provider] -
--- NOTE | 2019-09-26 16:34 | ED.DCSUM_ITS ---
- ER Visit Summary Date of Service: 09/26/19 Chief Complaint: Right hand laceration History of Present Illness: The patient is a 54 M presenting with right hand laceration. Patient states that he was helping his friend clean up leaves. He went to dump the leaves into his trailer and cut his hand on the trailer. He was able to control the bleeding at home. His tetanus is up-to-date. Denies other injuries. He is not on anticoagulants. Physical Examination: Vitals are stable. Patient is afebrile. Alert no acute distress. HEENT exam is unremarkable. Neck is supple. Lungs are clear and equal bilaterally. Heart is regular rate and rhythm. Extremities 3 cm palmar laceration over the thenar eminence of right hand. Tendon function is normal. Normal cap refill. Normal range of motion. Skin is warm and dry. No focal neurologic deficit. Remainder of exam is unremarkable. Emergency Department Course and Treatment: Wound was irrigated. Anesthetized with lidocaine. 4, 4-0 simple sutures were placed. Patient tolerated this well. Advised wound care instructions. Advised to follow-up with primary care physician. Advised to return to ED for worsening complaints. Disposition: Discharge home Impression: Right hand laceration, laceration repair This note was generated with [employer] dictation software. It may contain incorrect words, spelling, and punctuation that were not noted in review of the chart prior to signing ED Disposition - Plan for ED Patient: Instructions: LACERATION, Hand Referrals: Gerald Oconnor DO [Primary Care Provider] -
[2019-09-26 17:13] VITALS: RESP 20
[2019-09-26 17:17] VITALS: RESP 20
== END 2019-09-26 17:18 | disposition home or self-care (01) ==
LOC: ED 16:39
PROVIDERS: Emergency Provider Emergency Medicine; Family Provider Student in an Organized Health Care Education/Training Program; PCP Student in an Organized Health Care Education/Training Program
DX: S61.411A Laceration without foreign body of right hand, initial encounter (principal); W26.8XXA Contact with other sharp object(s), not elsewhere classified, initial encounter; I10 Essential (primary) hypertension; K21.9 Gastro-esophageal reflux disease without esophagitis; Z72.0 Tobacco use; Z79.899 Other long term (current) drug therapy
CPT/HCPCS: 12002; 99283

== ENCOUNTER 2020-02-02 05:16 | Emergency (ER) | payer OTHER, SELFPAY ==
[2020-02-02 05:17] VITALS: BP 199/99; PULSE 82; RESP 16; TEMP 36.8; O2SAT 95; BMI 32.0
[2020-02-02 05:34] VITALS: BP 199/99; PULSE 82; RESP 16; O2SAT 95
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
== END 2020-02-02 06:12 | disposition home or self-care (01) ==
LOC: ED 05:40
PROVIDERS: Emergency Provider Emergency Medicine; PCP Student in an Organized Health Care Education/Training Program
DX: M54.5 Low back pain (principal); I10 Essential (primary) hypertension; Z72.0 Tobacco use; Z79.899 Other long term (current) drug therapy
CPT/HCPCS: 99282

== ENCOUNTER → 2020-02-16 | Outpatient (CLI) | payer OTHER, SELFPAY ==
[2020-02-02 05:17] VITALS: BMI 32.0
--- NOTE | 2020-02-16 12:31 | MRI_ITS ---
STUDY: MRI LUMBAR SPINE WITHOUT CONTRAST REASON FOR EXAM: Male, 54 years old. lumbar disc disease, worsening pain x 2 weeks radiates into legs L and amp;amp;gt;R, loss of bowel function one time TECHNIQUE: Standardized fat and water weighted pulse sequences were obtained in the sagittal and axial planes. COMPARISON: Comparison dated March 03, 2011. FINDINGS: Lumbar straightening. No significant scoliosis. Conus medullaris terminates normally at the T12-L1 level. No acute fracture. No dislocation. No bone destruction. T11 hemangioma. Normal paraspinal muscles. Normal aorta. Normal retroperitoneum. Nonvisualized right kidney. T12-L1: Small osteophytes. Normal disc height, hydration and morphology. Normal bilateral facet joints. Normal central canal and bilateral lateral recesses. Normal bilateral intervertebral neural foramina. L1-2: Small osteophytes. Normal disc height, hydration and morphology. Normal bilateral facet joints. Normal central canal and bilateral lateral recesses. Normal bilateral intervertebral neural foramina. L2-3: Normal endplates. Normal disc height, hydration and morphology. Normal bilateral facet joints. Normal central canal and bilateral lateral recesses. Normal bilateral intervertebral neural foramina. L3-4: Normal endplates. Shallow disc bulge. Facet joint arthrosis. Normal central canal and bilateral lateral recesses. Left-sided neural foraminal narrowing without impingement. L4-5: Normal endplates. Left paracentral caudal disc extrusion with moderate central canal narrowing. Herniated disc material measures 7 mm x 11 mm x 13 mm (axial image 6 series 5 and sagittal image 6 series 2). Facet joint arthrosis. Left lateral recess narrowing. Left-sided neural foraminal narrowing without impingement. L5-S1: Normal endplates. Shallow disc bulge. Facet joint arthrosis. Normal central canal and bilateral lateral recesses. Left-sided neural foraminal narrowing without impingement. MRI/Spine Lumbar (Routine) IMPRESSION: New/progressive L4-5 disc left paracentral caudal disc extrusion with moderate central canal narrowing New/progressive L4-5 left lateral recess narrowing with impingement of the left descending L5 nerve root Multilevel left-sided neural foraminal narrowing without impingement Stable shallow L3-4 and L5-S1 disc bulges Nonvisualized right kidney Electronically Signed: Akbar Deluca DO at 14:47 EDT Tel , Service support ,
== END | disposition home or self-care (01) ==
PROVIDERS: PCP Student in an Organized Health Care Education/Training Program; Referring Provider Chiropractor; Visit Provider Chiropractor
DX: M51.16 Intervertebral disc disorders with radiculopathy, lumbar region (principal)
CPT/HCPCS: 72148

== ENCOUNTER → 2021-05-25 08:19 | Outpatient (CLI) | payer OTHER, SELFPAY ==
[2021-05-25 10:16] LABS: Absolute Lymphocyte Count 1.96 X10^3/uL (0.83-4.51); Absolute Neutrophil Count 4.8 X10^3/uL (2.0-7.7); Basophil# 0.04 X10^3/uL; Basophil% 0.5 % (0-1); Eosinophil# 0.02 X10^3/uL; Eosinophils% 0.3 % (0-5); Hematocrit 36.7 % (40-54); Hemoglobin 12.5 g/dL (13.0-16.5); Lymphocyte # 1.96 X10^3/ul (0.83-4.51); Lymphocyte % 26.1 % (19-41); Mean Corp Hgb Conc 34.1 g/dL (32-36); Mean Corpuscular Hgb 32.8 pg (27.0-32.0); Mean Corpuscular Volume 96.3 fL (80-94); Mean Platelet Vol. 8.6 fl (6.2-12.0); Monocyte# 0.63 X10^3/uL; Monocyte% 8.4 % (0-10); NRBC Flagged by Analyzer 0 % (0-5); Neutrophil # 4.81 X10^3/uL (2.7-7.7); Neutrophil % 64.2 % (47-70); Platelet Count 249 K/mm3 (150-450); RBC Distribution Width CV 12.2 % (11.6-14.6); RBC Distribution Width SD 42.4 fl (35.1-43.9); Red Blood Count 3.81 M/mm3 (4.6-6.2); White Blood Count 7.5 K/mm3 (4.4-11.0)
[2021-05-25 10:58] LABS: AST(SGOT) 21 U/L (15-37); Alanine Aminotransfer ALT/SGPT 34 U/L (16-61); Albumin, Serum 4.4 g/dL (3.2-5.0); Alkaline Phosphatase 62 U/L (45-117); Anion Gap 8 (5-15); BUN 19 mg/dL (7-18); BUN/Creat Ratio 15.2 RATIO (10-20); Bilirubin, Direct 0.11 mg/dL (0.00-0.30); Calcium,Total 9.7 mg/dL (8.5-10.1); Chloride 105 mmol/L (98-107); Creatinine, Serum 1.25 mg/dL (0.70-1.30); EST Glomerular Filtration Rate 64 mL/min (>60); Est Glom Filt Rate - Afr Amer 77 mL/min (>60); Globulin 3.5 g/dL (2.2-4.2); Glucose 85 mg/dL (74-106); Protein, Total 7.9 g/dL (6.4-8.2); Sodium Level 139 mmol/L (136-145)
[2021-05-25 11:34] LABS: Hepatitis B Surface Antibody Reactive; Hepatitis B Surface Antigen Non-Reactive (Nonreactive); Hepatitis C Antibody Non-Reactive (Nonreactive)
[2021-05-28 20:07] LABS: QNTFERON TB Mitogen Value > 10.00 IU/mL (.); QNTFERON TB Nil Value 0 IU/mL (.); QNTFERON TB1+ Ag Value 0.01 IU/mL (.); QNTFERON TB2+ Ag Value 0.02 IU/mL (.)
[2021-05-29 08:05] LABS: Hepatitis B Core Ab Total Negative (Negative); QNTIFERON TB Positive Criteria Negative (Negative)
== END ==
PROVIDERS: PCP Student in an Organized Health Care Education/Training Program; Referring Provider Dermatology; Visit Provider Dermatology
DX: L30.9 Dermatitis, unspecified (principal); Z79.899 Other long term (current) drug therapy
CPT/HCPCS: 36415; 80048; 80076; 85025; 86480; 86704; 86706; 86803; 87340

== ENCOUNTER → 2021-07-25 | Outpatient (CLI) | payer OTHER, SELFPAY | END | disposition home or self-care (01) | LOC: LABSPEC 16:40 | PROVIDERS: PCP Student in an Organized Health Care Education/Training Program; Referring Provider Otolaryngology Otolaryngology/Facial Plastic Surgery; Visit Provider Otolaryngology Otolaryngology/Facial Plastic Surgery | DX: J02.9 Acute pharyngitis, unspecified (principal) | CPT/HCPCS: 87070; 87077; 87101 ==

== ENCOUNTER 2021-08-24 13:48 | Emergency (ER) | payer OTHER, SELFPAY ==
[2021-08-24 13:49] VITALS: BP 128/66; PULSE 118; RESP 16; TEMP 36.7; O2SAT 98; BMI 31.3
--- NOTE | 2021-08-24 14:15 | EDS_ITS ---
HPI History of Present Illness Detail of Chief Complaint: hand swelling Informant: patient Onset/Context/Timing Onset: Month(s) Timing: Continuous Current Severity: Mild Maximum Severity: Moderate Narrative Narrative: 56-year-old male who for the last 6 months has had issues with both hands. Initially told me they were thinking it might be eczema then they radio personality thought it may be psoriasis. Has been treated with steroids with limited relief. Said for last several months progressively worsened its in both hands and wrists. Has bilateral swelling. He denies any fever or chills. He says it does itch. 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 Has been no trauma or richard. Initially nursing put that this was richard he said there is no history of any trauma whatsoever. Prior similar symptoms: Yes Recent Illness/Hospitalization: No PFSH PFSH Home Medications Omeprazole [Prilosec] 40 mg PO DAILY 12/28/14 [History Last Taken 12/09/18] lisinopril-hydrochlorothiazide [Zestoretic] 1 tab PO DAILY 04/19/17 [History Last Taken 12/10/18] Echinacea 1 tab PO DAILY 12/10/18 [History Last Taken 12/10/18] diazepam 5 mg PO Q8 PRN #10 tab 02/02/20 [Rx Last Taken Unknown] cephalexin 500 mg PO Q6H 7 Days #28 cap 08/24/21 [Rx Last Taken Unknown] prednisone 40 mg PO DAILY 5 Days #20 tab 08/24/21 [Rx Last Taken Unknown] Allergy/AdvReac Type Severity Reaction Status Date / Time No Known Allergies Allergy Verified 09/26/19 16:20 Social History Smoking Status: Current every day smoker ROS ROS ED ROS Narrative Denies recent illness. Review of Systems ROS Unobtainable: Denies due to encephalopathy Constitutional Constitutional ED: Denies chills or fever(s) Eyes Eyes: Denies change in vision ENT ENT ED: Denies ear pain or sore throat Cardiovascular Cardiovascular: Denies chest pain Respiratory/Chest Respiratory/Chest: Denies dyspnea Gastrointestinal Gastrointestinal: Denies abdominal pain or nausea Genitourinary Genitourinary ED: Denies dysuria or hematuria Musculoskeletal Musculoskeletal: Denies myalgias Integumentary Reports rash Neurologic Neurologic: Denies headache(s) Psychiatric Psychiatric: Denies depression Endocrine Endocrinology: Denies polyuria Allergic/Immunologic Allergic/Immunologic ED: Denies urticaria EXAM Physical Exam Narrative Exam Narrative: 36-year-old male no acute distress. Vital signs stable afebrile. Lungs clear. Heart regular. Abdomen soft nontender. Bilateral hands are swollen, red with cracked skin. This could be secondary to dermatological problem it could be secondary to a chemical exposure but there has been no history of CAD. Could also be underlying infection. There is no lymphangitic streaking. There is no axillary lymphadenopathy. This is both hands. He has decreased range of motion to the amount of swelling. Otherwise exam unremarkable. Const Vital Signs: 08/24/21 13:49 Temperature 98.0 F Temperature Source Temporal Pulse Rate 118 H Respiratory Rate 16 Blood Pressure 128/66 H Blood Pressure Mean 86 Pulse Ox 98 Positive well nourished and well developed; Negative for obese, cachectic, contractures or unkempt General Appearance ED: well developed and NAD; Negative for unkempt, cachectic, contractures, cyanotic, diaphoretic or pallor Nutritional Appearance: Negative for cachectic or obese HEENT Reports moist mucous membranes Negative for trauma or tenderness Eyes PERRL and EOMs intact bilaterally Neck no lymphadenopathy, supple and no JVD Chest Wall inspection of chest normal and palpation of chest normal Resp normal respiratory effort and clear to auscultation bilaterally Effort and Inspection: Negative for pain with movement Auscultation: Negative for rales, rhonchi or wheezes Cardio regular rate, regular rhythm, S1 normal heart sound, S2 normal heart sound and no murmurs GI normal to inspection, nondistended, normoactive bowel sounds, non-tender, non- distended and no masses Auscultation: normoactive bowel sounds Palpation: soft; Negative for tender, guarding or rebound tenderness present Back/Spine no CVA tenderness Extremity normal to inspection Extremity Narrative: Bilateral hands swollen, red with cracked skin. No lymphangitic streaking. General Extremety ED: Yes edema and tenderness General Extremity: edema Neuro oriented x3 Sensorium / Orientation: alert Motor Exam: strength 5/5 throughout Psych mental status grossly normal Appearance: Negative for unkempt Mood & Affect: Negative for depressed Skin no wounds General Skin Exam: Negative for jaundice or pallor Rashes: rashes noted MDM MDM MDM Narrative Medical decision making narrative: Voicemail bilateral hand swelling and pain borderline for months. This most likely some type of underlying dermatologic condition. There may be secondary infection. Be placed on prednisone for inflammation and Keflex for possible infection. His appointment to see his radio personality in 2 weeks to call today or tomorrow to see if he get that appointment moved up. He may need further evaluation to get a firm diagnosis. This could also be classically like a contact dermatitis which is why no history of tonsillitis with that. Discharge Plan Triage Chief Complaint: Burn ED Provider: Wilfrido Zeng Dx/Rx/DC Orders Clinical Impression: Dermatitis Instructions: ED Atopic Dermatitis (Adult) Prescriptions: New cephalexin 500 mg capsule 500 mg PO Q6H 7 Days Qty: 28 RF: 0 prednisone 20 mg tablet 40 mg PO DAILY 5 Days Qty: 20 RF: 0 No Action Omeprazole [Prilosec] 40 MG capsule 40 mg PO DAILY RF: 0 lisinopril-hydrochlorothiazide [Zestoretic] 1 TABLET tablet 1 tab PO DAILY RF: 0 Echinacea 1 tab PO DAILY RF: 0 diazepam 5 MG tablet 5 mg PO Q8 PRN (Reason: Muscle Spasm) Qty: 10 RF: 0 Primary Care Provider: Gerald Oconnor Referrals: Abigail Carroll MD [NON-STAFF] - As soon as possible Gerald Oconnor DO [Primary Care Provider] - Activity Restrictions/Additional Instructions: Elevate your hands to decrease the swelling. Tylenol and Motrin for pain. Keflex 4 times a day in case there is underlying infection. Prednisone daily to help with the swelling. Call your radio personality if they can move up your September 06 appointment to as soon as possible.. Disposition Disposition: Home, Self Care
[2021-08-24] MEDS: Cephalexin 250 MG Capsule 500 MG PO (14:33)
[2021-08-24] MEDS: predniSONE 20 MG Tablet 40 MG PO (14:33)
== END 2021-08-24 14:59 | disposition home or self-care (01) ==
PROVIDERS: Emergency Provider Emergency Medicine; PCP Student in an Organized Health Care Education/Training Program
DX: L30.9 Dermatitis, unspecified (principal); F17.200 Nicotine dependence, unspecified, uncomplicated
CPT/HCPCS: 99283

== ENCOUNTER 2021-11-04 17:47 | Emergency (ER) | payer OTHER, SELFPAY ==
[2021-11-04 17:48] VITALS: BP 129/80; PULSE 99; RESP 18; TEMP 36.1; O2SAT 98; BMI 30.9
--- NOTE | 2021-11-04 19:58 | EX.ED.DYSGE1 ---
HPI History of Present Illness Chief Complaint: Rash Informant: patient Narrative Narrative: Patient has been dealing with rash and dry skin for about a year. He has been seeing dermatology. He was getting injections of co-Centrix but he does not think they were helping. He has an appointment to see his personnel generalist manager in 5 days. He has had about 3 weeks of increasing rash in the groin which is really a new feature. He states when water hits it it richard and it is very itchy. Patient also states he has a slight runny nose and cough once or twice but he does not feel sick. He does not want to be tested for Covid. He has full vaccinations. His only concern is the groin rash. He has not tried anything on it. He has no trouble urinating. No drainage or lesions or swollen areas. Nothing makes it better or worse but nothing has been tried. [facility] Medical History GERD (gastroesophageal reflux disease) HTN (hypertension) Single kidney Home Medications Omeprazole [Prilosec] 40 mg PO DAILY 12/28/14 [History Last Taken 12/09/18] lisinopril-hydrochlorothiazide [Zestoretic] 1 tab PO DAILY 04/19/17 [History Last Taken 12/10/18] Echinacea 1 tab PO DAILY 12/10/18 [History Last Taken 12/10/18] diazepam 5 mg PO Q8 PRN #10 tab 02/02/20 [Rx Last Taken Unknown] cephalexin 500 mg PO Q6H 7 Days #28 cap 08/24/21 [Rx Last Taken Unknown] prednisone 40 mg PO DAILY 5 Days #20 tab 08/24/21 [Rx Last Taken Unknown] fluconazole [Diflucan] 200 mg PO .weekly #1 tab 11/04/21 [Rx Last Taken Unknown] Allergy/AdvReac Type Severity Reaction Status Date / Time No Known Allergies Allergy Verified 11/04/21 17:50 Social History Smoking Status: Current every day smoker tobacco type: cigarettes ROS ROS ED Constitutional Constitutional ED: Denies chills or fever(s) Eyes Eyes: Denies blurry vision ENT ENT ED: Reports rhinorrhea; Denies sore throat Cardiovascular Cardiovascular: Denies chest pain or palpitations Respiratory/Chest Respiratory/Chest: Reports cough; Denies dyspnea, dyspnea on exertion or sputum Gastrointestinal Gastrointestinal: Denies diarrhea, nausea or vomiting Genitourinary Genitourinary ED: Denies dysuria Musculoskeletal Musculoskeletal: Denies arthralgias, back pain or myalgias Integumentary Reports Abrasions and rash Neurologic Neurologic: Denies headache(s) or weakness Endocrine Endocrinology: Denies polydipsia or polyuria Allergic/Immunologic Allergic/Immunologic ED: Denies mouth swelling or urticaria EXAM Physical Exam Const Vital Signs: 11/04/21 17:48 Temperature 97 F L Temperature Source Temporal Pulse Rate 99 Respiratory Rate 18 Blood Pressure 129/80 H Blood Pressure Mean 96 Pulse Ox 98 Oxygen Delivery Method Room Air Patient looks nontoxic. Positive well nourished and well developed General Appearance ED: well developed and NAD; Negative for cyanotic or diaphoretic HEENT Reports moist mucous membranes Negative for trauma Eyes General Eye ED: Negative for pale conjunctiva Neck no JVD Chest Wall inspection of chest normal Resp normal respiratory effort and clear to auscultation bilaterally Effort and Inspection: Negative for pain with movement Auscultation: Negative for rales, rhonchi or wheezes Cardio regular rate and regular rhythm GI normal to inspection, nondistended, normoactive bowel sounds and non-tender Palpation: soft Back/Spine no CVA tenderness Extremity Extremity Narrative: See skin exam below Neuro Sensorium / Orientation: alert Psych mental status grossly normal Skin Skin Narrative: Patient has dry erythematous skin on both forearms and hands diffusely. He states this is now a little bit better than it was just a month ago. This is normal for him. Patient also has a rash in the groin diffusely. It is red. It is not weeping. It is not hives. There are satellite lesions. I think this is more likely tinea cruris. No abscesses or lesions. MDM MDM MDM Narrative Medical decision making narrative: Patient will see his personnel generalist manager in 5 days. He will get [id number] meds for tinea cruris. I will give him some Diflucan now and prescription. We discussed reasons to return. Discharge Plan Triage Chief Complaint: Rash ED Provider: Mark Monsalve Dx/Rx/DC Orders Clinical Impression: Tinea cruris Instructions: ED Barrington Santos Itch Prescriptions: New fluconazole [Diflucan] 200 mg tablet 200 mg PO .weekly Qty: 1 RF: 0 No Action Omeprazole [Prilosec] 40 MG capsule 40 mg PO DAILY RF: 0 lisinopril-hydrochlorothiazide [Zestoretic] 1 TABLET tablet 1 tab PO DAILY RF: 0 Echinacea 1 tab PO DAILY RF: 0 diazepam 5 MG tablet 5 mg PO Q8 PRN (Reason: Muscle Spasm) Qty: 10 RF: 0 cephalexin 500 mg capsule 500 mg PO Q6H 7 Days Qty: 28 RF: 0 prednisone 20 mg tablet 40 mg PO DAILY 5 Days Qty: 20 RF: 0 Primary Care Provider: Gerald Oconnor Referrals: Gerald Oconnor DO [Primary Care Provider] - As Needed Activity Restrictions/Additional Instructions: Follow-up with your personnel generalist manager as scheduled on the fifth. Disposition Disposition: Home, Self Care
[2021-11-04] MEDS: Fluconazole 100 MG Tablet 200 MG PO (20:20)
[2021-11-04 20:21] VITALS: RESP 16
== END 2021-11-04 20:21 | disposition home or self-care (01) ==
PROVIDERS: Emergency Provider Emergency Medicine; PCP Student in an Organized Health Care Education/Training Program
DX: B35.6 Tinea cruris (principal); I10 Essential (primary) hypertension; K21.9 Gastro-esophageal reflux disease without esophagitis; Z90.5 Acquired absence of kidney; Z79.899 Other long term (current) drug therapy; F17.210 Nicotine dependence, cigarettes, uncomplicated
CPT/HCPCS: 99283

== ENCOUNTER 2022-02-21 10:07 | Outpatient (CLI) | payer OTHER, SELFPAY | END 2022-02-21 23:59 | disposition home or self-care (01) | LOC: LABSPEC 10:09 | PROVIDERS: PCP Student in an Organized Health Care Education/Training Program; Visit Provider Dermatology | DX: L30.9 Dermatitis, unspecified (principal); Z79.899 Other long term (current) drug therapy | CPT/HCPCS: 87070; 87077; 87186; 87205 ==

== ENCOUNTER → 2023-03-08 | Outpatient (CLI) | payer OTHER, SELFPAY ==
--- NOTE | 2023-03-08 | TOBX_PTH ---
PATIENT: CLEMENCIA PARKS LOC: [facility] U#:[id number] AGE/SX: 57/M ROOM: RE03/08/[address]: ESEQUIEL DE LOS SANTOS MD : 1965 BED: DIS: 03/08/2023 SPEC #: [id number] RECD: 03/08/23 15:03 STATUS: KATIE ALDRICHMadai #: [id number] OSKAR: 03/08/23 00:[address]: ESEQUIEL DE LOS SANTOS DEPT: SURGICAL PATHOLOGY RECD BY: Harmony Oden ENTERED: 03/09/23 12:26 SP TYPE: TONGUE BX OTHR DR: Dr. Gerald Oconnor DO Tissues: Tongue, NOS Procedures: Special Stain Group I Surgery Specimen Level IV GMS Stain (control) HEADER OPERATION: Biopsy of palate and tongue PRE-OP DIAGNOSIS: Palate and tongue lesions TISSUE SUBMITTED: Palate (round specimen), anterior dorsal tongue MICROSCOPIC DIAGNOSIS Palate and anterior dorsal tongue lesions, biopsy: Pieces of squamous mucosa with extensive ulceration, acute and chronic inflammation, pseudo-epitheliomatous hyperplasia and bacterial colonization. Negative for malignancy. See comment. MAGAN:luisa 03/12/2023 COMMENT Special stain for fungi is negative for organisms; matched control is appropriate. Clinical correlation and appropriate follow-up are necessary. Case has been reviewed in consultation with Dr. Marie who concurs with the above diagnosis. IDC:AM MICROSCOPIC DESCRIPTION Slides are reviewed. GROSS DESCRIPTION Received in fixative is one container labeled with the patient's name and designated tongue and palate. The specimen consists of two pieces of valdes mucosal tissue measuring 1.0 x 0.3 x 0.3 cm and 0.5 x 0.5 x 0.3 cm. The entire specimen is submitted in one cassette. / MAGAN:luisa 03/09/2023 TC:2 CPT: 24758, 08985
== END | disposition home or self-care (01) ==
LOC: LABSPEC 15:50
PROVIDERS: PCP Student in an Organized Health Care Education/Training Program; Referring Provider Dentist Oral and Maxillofacial Surgery; Visit Provider Dentist Oral and Maxillofacial Surgery
DX: K14.9 Disease of tongue, unspecified (principal); L85.9 Epidermal thickening, unspecified
CPT/HCPCS: 88305; 88312